=== PATIENT | female | born 2000 | race Caucasian/White ===

== ENCOUNTER 2020-01-18 00:32 | Emergency (ER) | payer OTHER ==
[~2020-01-18] VITALS: Ht 172.7 cm; Wt 50.0 kg
[2020-01-18] MEDS ORDERED: LORazepam 2 MG/ML, 1ML ONE (01:29)
[2020-01-18] MEDS ORDERED: HALOPERIDOL 5 MG/ML ONE (01:29)
[2020-01-18] MEDS ORDERED: DIPHENHYDRAMINE 50 MG/ML, 1ML ONE (01:29)
[2020-01-18] MEDS ORDERED: LORazepam 2 MG/ML, 1ML IVPush ONE (01:30)
[2020-01-18] MEDS ORDERED: DIPHENHYDRAMINE 25 MG CAPSULE PO ONE (01:30)
[2020-01-18] MEDS ORDERED: HALOPERIDOL 5 MG/ML IM PRN (01:30)
--- NOTE | 2020-01-18 01:41 | NUR ---
PT EXTREMELY ANXIOUS INITIALLY, NOW PT RESTING CALMLY IN BED, PARENTS AT BEDSIDE, VSS.
[2020-01-18 01:52] LABS: BASOPHILS # (AUTO) 0.04 x10^3/uL (0-0.3); BASOPHILS % (AUTO) 1 % (0-1); EOSINOPHILS # (AUTO) 0.49 x10^3/uL (0-0.8); EOSINOPHILS % (AUTO) 5 % (1-7); LYMPHOCYTES # (AUTO) 2.55 x10^3/uL (1-6.1); LYMPHOCYTES % (AUTO) 28 % (22-44); MD NO; MEAN CORPUSCULAR HEMOGLOBIN 30.4 pg (27.0-34.8); MEAN CORPUSCULAR HGB CONC 33.3 g/dL (32.4-35.8); MEAN CORPUSCULAR VOLUME 91.2 fL (80-100); MONOCYTES # (AUTO) 0.67 x10^3/uL (0-1.4); MONOCYTES % (AUTO) 7 % (2-9); NEUTROPHILS # (AUTO) 5.35 x10^3/uL (1.8-8.0); NEUTROPHILS % (AUTO) 59 % (42-75); PLATELET COUNT 355 x10^3/uL (130-400); RED CELL DISTRIBUTION WIDTH 12.8 % (9.6-15.2)
[2020-01-18] MEDS ORDERED: PLEASE ENTER ALLERGIES MC SCH (02:00)
[2020-01-18] MEDS ORDERED: DIPHENHYDRAMINE 50 MG/ML, 1ML IV ONE (02:00)
[2020-01-18 02:01] LABS: ALANINE AMINOTRANSFERASE 25 U/L (12-78); ALBUMIN 4.5 g/dL (3.4-5.0); ANION GAP 12 mmol/L (5-15); CALCIUM 9.3 mg/dL (8.5-10.1); CHLORIDE 110 mmol/L (98-107); CREATININE 0.93 mg/dL (0.55-1.02)
[2020-01-18 02:11] LABS: ALKALINE PHOSPHATASE 58 U/L (45-117); BILIRUBIN,TOTAL 0.3 mg/dL (0.2-1.0); TOTAL PROTEIN 7.8 g/dL (6.4-8.2)
[2020-01-18 02:15] LABS: SALICYLATE LEVEL < 1.7 mg/dL (2.8-20.0)
--- NOTE | 2020-01-18 02:39 | NUR ---
PT SLEEPING IN BED, NO COMPLAINTS AT THIS TIME. PARENTS AT BEDSIDE
--- NOTE | 2020-01-18 03:52 | NUR ---
PT SLEEPING IN BED, PARENTS AT BEDSIDE, RESPONDS TO PAINFUL STIMULI, VSS
[2020-01-18 05:23] VITALS: BP 119/76
--- NOTE | 2020-01-18 05:23 | NUR ---
pt rousable to voice, up to br with mother, vss, no complaints
[2020-01-18] MEDS ORDERED: SODIUM CHLORIDE 0.9% 1,000ML IVBOLUS ONE (05:30)
[2020-01-18 06:08] LABS: HCG UR SG 1.017 (1.003-1.030)
[2020-01-18 06:26] LABS: AMPHETAMINE SCREEN, URINE Negative (Negative); BARBITURATE SCREEN, URINE Negative (Negative); BENZODIAZEPINE SCREEN, URINE Negative (Negative); CANNABINOID SCREEN, URINE Positive (Negative); COCAINE SCREEN, URINE Negative (Negative); METHADONE SCREEN, URINE Negative (Negative); OPIATE SCREEN, URINE Negative (Negative)
== END 2020-01-18 06:43 | disposition home or self-care (01) ==
LOC: ED 05:28
DX: F12.10 Cannabis abuse, uncomplicated (principal); R41.82 Altered mental status, unspecified; R00.0 Tachycardia, unspecified
CPT/HCPCS: 36415; 80053; 80307; 81025; 84443; 85025; 93005; 96372; 96374; 96375; 99285; J1200; J1630; J2060; J7030